=== PATIENT | female | born 1960 | race Caucasian/White ===

== ENCOUNTER 2017-11-13 12:17 | Emergency (ER) | payer MEDICAID ==
[~2017-11-13] VITALS: Ht 157.5 cm; Wt 88.5 kg
[~2017-11-13 12:17] MED LIST: AMLO5TAB4 PO; BENA40TA2 PO; BREX2TAB PO; CARV25TA55 PO; DOXA4TAB2 PO; DULO60CA41 PO; FURO-150 PO; GLU500 PO; HYDR-4037 PO; HYDR12.55; LIP10 PO; POTA8CAP PO; SUCR1TAB PO; SUMA100T16 PO
[2017-11-13 12:21] VITALS: BP_SYST 204
[2017-11-13] MEDS ORDERED: NACL 0.9% 1,000 ML IV ONE (13:00)
[2017-11-13 13:16] LABS: BASOPHILS % (AUTO) 0.7 % (0.0-2.0); EOSINOPHILS # (AUTO) 0.1 K/uL (0.0-0.4); EOSINOPHILS % (AUTO) 1.9 % (0.0-4.0); HEMATOCRIT 41.6 % (36-48); HEMOGLOBIN 13.6 g/dL (12.0-16.0); LYMPHOCYTES # (AUTO) 2.8 K/uL (1.0-5.5); LYMPHOCYTES % (AUTO) 60.2 % (20.5-51.5); MEAN CORPUSCULAR HEMOGLOBIN 28 pg (27-31); MEAN CORPUSCULAR HGB CONC 33 % (32-36); MEAN CORPUSCULAR VOLUME 87 fL (79.0-98.0); MONOCYTES # (AUTO) 0.4 K/uL (0.0-1.0); MONOCYTES % (AUTO) 7.9 % (1.7-9.3); NEUTROPHILS # (AUTO) 1.4 K/uL (1.8-7.7); NEUTROPHILS % (AUTO) 29.3 % (40.0-70.0); PLATELET COUNT (AUTO) 299 K/uL (130-430); RED BLOOD CELL COUNT(AUTO) 4.78 MIL/uL (4.2-6.2); RED CELL DISTRIBUTION WIDTH 12.9 % (9.0-15.0); WHITE BLOOD COUNT (AUTO) 4.7 K/uL (4.8-10.8)
[2017-11-13 13:25] LABS: CALCIUM 9.8 mg/dL (8.4-11.0); CREATININE 0.67 mg/dL (0.55-1.30)
[2017-11-13 13:29] LABS: PROTHROMBIN TIME 10.1 SECS (9.5-12.5)
[2017-11-13 13:30] LABS: ALBUMIN 3.8 g/dL (3.4-4.8); TOTAL BILIRUBIN 0.3 mg/dL (0.0-1.0)
[2017-11-13] MEDS ORDERED: cloNIDine HCL 0.1 MG TABLET PO ONE (13:30)
[2017-11-13] MEDS ORDERED: HYDR-1115 PO (13:31)
[2017-11-13] MEDS ORDERED: GLU850 PO (13:39)
[2017-11-13] MEDS ORDERED: HYDR12.585 PO (13:43)
[2017-11-13 15:11] VITALS: BP_SYST 169
== END 2017-11-13 15:11 | disposition home or self-care (01) ==
LOC: SED 12:17
DX: S86.912A Strain of unspecified muscle(s) and tendon(s) at lower leg level, left leg, initial encounter (principal); I10 Essential (primary) hypertension; G43.909 Migraine, unspecified, not intractable, without status migrainosus; Z88.0 Allergy status to penicillin; Z88.1 Allergy status to other antibiotic agents; Z88.8 Allergy status to other drugs, medicaments and biological substances; Z79.899 Other long term (current) drug therapy; X58.XXXA Exposure to other specified factors, initial encounter; Y93.89 Activity, other specified; Y92.89 Other specified places as the place of occurrence of the external cause; Y99.8 Other external cause status
CPT/HCPCS: 36415; 80053; 85025; 85610; 85730; 93971; 96360; 96361; 99285; J7030